=== PATIENT | male | born 2000 | race Caucasian/White ===

== ENCOUNTER 2021-10-19 15:27 | Emergency (ER) | payer MEDICAID ==
[~2021-10-19] VITALS: Ht 170.2 cm; Wt 73.0 kg
[2021-10-19] MEDS ORDERED: LIDOCAINE HCL 1% 20ML VIAL (Pyxis) INJ INFIL ONE (16:00)
[2021-10-19] MEDS ORDERED: HYDROCODONE/ACETAMINOPHEN 5/325MG TABLET PO ONE (17:15)
[2021-10-19] MEDS ORDERED: CEPHALEXIN 250MG CAPSULE PO ONE (17:30)
[2021-10-19] MEDS ORDERED: CEPH500T MT (17:35)
[2021-10-19 17:50] VITALS: BP 117/75
== END 2021-10-19 17:51 | disposition home or self-care (01) ==
LOC: ER 15:27
DX: S81.811A Laceration without foreign body, right lower leg, initial encounter (principal); W18.39XA Other fall on same level, initial encounter; Y93.89 Activity, other specified; Y92.89 Other specified places as the place of occurrence of the external cause; Y99.8 Other external cause status; F12.10 Cannabis abuse, uncomplicated
CPT/HCPCS: 12005; 99283; J3490

== ENCOUNTER 2021-10-20 08:02 | Emergency (ER) | payer MEDICAID ==
[~2021-10-20] VITALS: Ht 175.3 cm; Wt 73.0 kg
[~2021-10-20 08:02] MED LIST: CEPH500T MT
[2021-10-20 08:12] VITALS: BP 139/73
== END 2021-10-20 09:09 | disposition home or self-care (01) ==
LOC: ER 08:02
DX: Z48.02 Encounter for removal of sutures (principal)
CPT/HCPCS: 99281